=== PATIENT | female | born 1985 | race Caucasian/White ===

== ENCOUNTER 2017-12-23 08:46 | Emergency (ER) | payer OTHER ==
[2017-12-23 08:47] VITALS: BMI 27.6
[2017-12-23 08:53] VITALS: RESP 18; TEMP 98.5
[2017-12-23 09:34] LABS: HCG,QUALITATIVE URINE NEGATIVE (NEGATIVE)
[2017-12-23 09:39] LABS: SQUAMOUS EPITHIAL 24 /hpf (0-5); URINE BACTERIA OCC (<OCC); URINE BILIRUBIN NEGATIVE (NEGATIVE); URINE BLOOD NEGATIVE (NEGATIVE); URINE CLARITY Hazy (Clear); URINE COLOR Yellow (YELLOW); URINE GLUCOSE (UA) NORMAL (Normal); URINE LEUKOCYTE ESTERASE 3+ Leu/uL (Negative); URINE PROTEIN NEGATIVE (NEGATIVE); URINE UROBILINOGEN NORMAL mg/dL (0.2-1.0)
[2017-12-23] MEDS ORDERED: Sodium Chloride 0.9% 1,000 ML IV ONE (09:51)
[2017-12-23] MEDS ORDERED: Sodium Chloride 0.9% 1,000 ML ONE (10:00)
[2017-12-23 10:12] LABS: BASO % 0.5 % (0.0-2.0); EOS # 0.2 K/uL (0.0-0.7); EOS % 2.8 % (0.0-4.0); LYMPH # 2.4 K/uL (1.0-4.3); LYMPH % 44.1 % (20.0-40.0); MEAN CELL VOLUME 86.5 fL (81.0-99.0); MEAN CORPUSCULAR HEMOGLOBIN 29.3 pg (27.0-31.0); MEAN CORPUSCULAR HGB CONC 33.9 g/dL (33.0-37.0); MEAN PLATELET VOLUME 7.5 fL (7.2-11.7); MONO # 0.4 K/uL (0.0-0.8); MONO % 7.5 % (0.0-10.0); NEUT # 2.5 K/uL (1.8-7.0); NEUT % 45.1 % (50.0-75.0); NRBC % 0.4 % (0.0-2.0); RBC 4.45 Mil/uL (3.80-5.20); RED CELL DISTRIBUTION WIDTH 13.4 % (11.5-14.5); WHITE BLOOD COUNT 5.5 K/uL (4.8-10.8)
--- NOTE | 2017-12-23 10:16 | C.PDOC ---
History Of Present Illness 32-year-old female, presents to the emergency department with complaints of epigastric abdominal pain x4 days. Pain is mild, and intermittent in nature. She is unable to describe the nature of pain. States it is worse after eating. This morning, pain became more severe and diffuse, prompting visit. Denies nausea, vomiting, diarrhea, or symptoms. No other complaints at this time. Time Seen by Provider: 12/23/17 09:42 Chief Complaint (Nursing): Abdominal Pain History Per: Patient History/Exam Limitations: no limitations Onset/Duration Of Symptoms: Days Current Symptoms Are (Timing): Still Present Severity: Moderate Location Of Pain/Discomfort: Epigastric Past Medical History Reviewed: Historical Data, Nursing Documentation, Vital Signs Vital Signs: Last Vital Signs Temp 98.5 F 12/23/17 08:50 Pulse 62 12/23/17 10:49 Resp 18 12/23/17 10:49 BP 94/55 L 12/23/17 10:49 Pulse Ox 98 12/23/17 10:49 - [employer] Procedures BILAT TUBAL DIVISION NEC (05/31/14) LOW CERVICAL (05/31/14) Family History: States: No Known Family Hx - Social History Hx Tobacco Use: No Hx Alcohol Use: No Hx Substance Use: No - Immunization History Hx Tetanus Toxoid Vaccination: No Hx Influenza Vaccination: No Hx Pneumococcal Vaccination: No Review Of Systems Constitutional: Negative for: Fever Cardiovascular: Negative for: Chest Pain Gastrointestinal: Positive for: Abdominal Pain. Negative for: Nausea, Vomiting , Diarrhea, Constipation Genitourinary: Negative for: Dysuria Musculoskeletal: Negative for: Back Pain Neurological: Negative for: Weakness, Numbness Physical Exam - Physical Exam Appears: Non-toxic, No Acute Distress Skin: Normal Color, Warm, Dry, No Rash Head: Normacephalic Eye(s): bilateral: PERRL Nose: Normal Oral Mucosa: Moist Lips: Normal Appearing Neck: Normal ROM Chest: Symmetrical Cardiovascular: Rhythm Regular, No Murmur Respiratory: Normal Breath Sounds, No Accessory Muscle Use Gastrointestinal/Abdominal: Bowel Sounds, Soft, Tenderness (epigastric), No Guarding, No Rebound Extremity: Normal ROM, No Deformity, No Swelling Neurological/Psych: Oriented x3, Normal Speech ED Course And Treatment - Laboratory Results Result Diagrams: 12/23/17 09:57 04/30/18 09:57 O2 Sat by Pulse Oximetry: 96 Medical Decision Making Medical Decision Making: Impression: epigastric pain Plan: * Bloodwork * Pepcid, IVF, Toradol * UA, U-preg Labs reviewed and unremarkable, no leukocytosis shift or bands to suggest infectious pathology. Lipase not elevated to suggest pancreatitis. CMP shows no other abnormality. UA shows WBC and LE. Will treat for UTI. Patient reevaluated and states she feels unchanged still has pain. She has no fever, abdomen is soft non-distended and minimally tender in epigastric area, negative [place] signs. Patient advised to drink fluids, rest and will prescribe Cipro for UTI Disposition Counseled Patient/Family Regarding: Diagnosis, Need For Followup, Rx Given - Disposition Referrals: [facility] [Outside] [facility] [Outside] Disposition: HOME/ ROUTINE Disposition Time: 10:37 Condition: GOOD Additional Instructions: Take antibiotic twice a day Drink fluids Take pain medicine as needed Follow up with your primary medical doctor or clinic in 2-5 days for further evaluation. Prescriptions: Ciprofloxacin [Cipro] 1 tab PO BID #10 tab Famotidine [Pepcid] 20 mg PO DAILY #20 tab Instructions: Urinary Tract Infections in Adults Forms: [employer] ([place]) Print Language: NAMIBIAN - POA Present On Arrival: None - Clinical Impression Clinical Impression: Epigastric abdominal pain, UTI (urinary tract infection) - Scribe Statement The provider has reviewed the documentation as recorded by the Scribe (Michell Herman) All medical record entries made by the Scribe were at my direction and personally dictated by me. I have reviewed the chart and agree that the record accurately reflects my personal performance of the history, physical exam, medical decision making, and the department course for this patient. I have also personally directed, reviewed, and agree with the discharge instructions and disposition.
[2017-12-23 10:18] LABS: ALB/GLOB RATIO 1.2 (1.0-2.1); ALT/SGPT 51 U/L (9-52); AST/SGOT 43 U/L (14-36); BLOOD UREA NITROGEN 10 mg/dL (7-17); GFR AFRICAN-AMERICAN > 60; GFR NON-AFRICAN AMERICAN > 60; LIPASE 155 U/L (23-300)
[2017-12-23 10:50] VITALS: BP 94/55; PULSE 62
[2017-12-23 14:46] VITALS: O2SAT 96
== END 2017-12-23 11:42 | disposition home or self-care (01) ==
LOC: C.ER 08:46
DX: N39.0 Urinary tract infection, site not specified (principal); R10.13 Epigastric pain
CPT/HCPCS: 80053; 81001; 83690; 84703; 85025; 96361; 96374; 99285; J1885; J7040